=== PATIENT | male | born 1960 | race Caucasian/White ===

== ENCOUNTER 2018-05-30 23:35 | Inpatient (IN) | payer BC ==
[~2018-05-30] VITALS: Ht 177.8 cm; Wt 77.5 kg
[2018-05-31 00:05] LABS: HEMATOCRIT 35.2 % (38.0-50.0); HEMOGLOBIN 12.8 G/DL (12.5-16.6); MCH 32.2 PG (29.0-34.0); MCHC 36.4 G/DL (30.0-36.0); MCV 88.7 FL (86-99); PLATELET COUNT 143 K/uL (156-360); RBC DIS.WIDTH-CV 14.6 % (11.8-14.6); RBC DIS.WIDTH-SD 47.8 % (39-53); RED BLOOD COUNT 3.97 M/uL (4.00-5.50); WHITE BLOOD COUNT 10.9 K/uL (4.1-10.2)
[2018-05-31 00:17] LABS: CHLORIDE 96 mEq/L (99-109); POTASSIUM 3.4 mEq/L (3.7-5.4); SODIUM 132 mEq/L (136-147)
[2018-05-31 00:18] LABS: GLUCOSE 131 mg/dL (70-99)
[2018-05-31 00:22] LABS: CREATININE 1.8 mg/dL (0.6-1.3); GFR ESTIMATE (CALCULATED) 42 mL/min/ (58.99-99999)
[2018-05-31 00:23] LABS: UREA NITROGEN (BUN) 10 mg/dL (9-23)
[2018-05-31 00:58] LABS: APPEARANCE CLEAR ((CLEAR)); BILIRUBIN NEGATIVE; BLOOD MODERATE; COLOR YELLOW ((YELLOW)); GLUCOSE (STRIP) NEGATIVE; KETONES NEGATIVE; LEUKOCYTES SMALL; NITRITE NEGATIVE; PROTEIN (STRIP) NEGATIVE; SPECIFIC GRAVITY 1.003 (1.000-1.030); UROBILINOGEN 0.2 MG/DL (0.2-1.0)
[2018-05-31 01:05] LABS: BACTERIA RARE /HPF; EPITHELIAL CELLS NONE SEEN /HPF; MUCUS TRACE /LPF; UCUL ADDED? NO; WHITE BLOOD CELLS 0-5 /HPF (0-5)
[2018-05-31] MEDS ORDERED: CIPRO500 MG PO (01:43)
[2018-05-31] MEDS ORDERED: VESICARE5 MG PO (01:44)
[2018-05-31] MEDS ORDERED: CYANOCOBAL1000 MCG/2 IM (01:44)
[2018-05-31] MEDS ORDERED: HYDROCODON-ACE1 EAC7 PO (01:44)
[2018-05-31] MEDS ORDERED: ZOFRAN ODT4 MG PO (01:44)
[2018-05-31] MEDS ORDERED: FLOMAX0.4 MG PO (01:44)
[2018-05-31] MEDS ORDERED: QUALAQUIN324 MG PO (01:45)
[2018-05-31 04:10] VITALS: BP 131/74
[2018-05-31 04:15] VITALS: BP 131/74
[2018-05-31 08:26] VITALS: BP 119/63
[2018-05-31 11:31] VITALS: BP 114/65
[2018-05-31 16:37] VITALS: BP 122/70
[2018-05-31 23:59] VITALS: BP 121/72
[2018-06-01 07:34] LABS: BASOPHIL (%) 0.4 % (0-1); EOSINOPHIL COUNT 0.2 K/uL (0-0.3); HEMATOCRIT 32.8 % (38.0-50.0); HEMOGLOBIN 11.4 G/DL (12.5-16.6); IMMATURE GRANULOCYTE (%) 0.4 % (0.0-0.7); LYMPHOCYTE (%) 13.2 % (15-42); LYMPHOCYTE COUNT 0.7 K/uL (1.0-2.8); MCH 31.1 PG (29.0-34.0); MCHC 34.8 G/DL (30.0-36.0); MCV 89.6 FL (86-99); MONOCYTE (%) 11.5 % (3-12); MONOCYTE COUNT 0.6 K/uL (0-0.8); NEUTROPHIL (%) 70.5 % (45-76); NEUTROPHIL COUNT 3.9 K/uL (1.8-6.4); PLATELET COUNT 156 K/uL (156-360); RBC DIS.WIDTH-CV 14.6 % (11.8-14.6); RBC DIS.WIDTH-SD 48.8 % (39-53); RED BLOOD COUNT 3.66 M/uL (4.00-5.50); WHITE BLOOD COUNT 5.5 K/uL (4.1-10.2)
[2018-06-01 08:00] LABS: CHLORIDE 100 MEQ/L (99-109); CREATININE 1.9 MG/DL (0.6-1.3); GFR ESTIMATE (CALCULATED) 39 mL/min/ (58.99-99999); GLUCOSE 104 mg/dL (70-99); POTASSIUM 3.4 MEQ/L (3.7-5.4); SODIUM 136 MEQ/L (136-147); UREA NITROGEN (BUN) 12 mg/dL (9-23)
[2018-06-01 11:23] VITALS: BP 110/66
[2018-06-01 15:24] VITALS: BP 109/62
[2018-06-01 19:32] VITALS: BP 126/75
[2018-06-01 23:21] VITALS: BP 124/73
[2018-06-02 07:01] LABS: CHLORIDE 103 MEQ/L (99-109); GFR ESTIMATE (CALCULATED) > 59 mL/min/ (58.99-99999); GLUCOSE 99 mg/dL (70-99); POTASSIUM 3.5 MEQ/L (3.7-5.4); SODIUM 138 MEQ/L (136-147); UREA NITROGEN (BUN) 9 mg/dL (9-23)
[2018-06-02 07:04] LABS: CREATININE 1.1 MG/DL (0.6-1.3)
[2018-06-02 08:00] VITALS: BP 111/75
[2018-06-02] MEDS ORDERED: PERCOCET 5/31 TABLET PO (08:19)
== END 2018-06-02 09:45 | disposition home or self-care (01) | DRG 669 ==
LOC: EME 23:35 → 3EAST 05-31 02:20 → EDOF 05-31 02:20 → ENRESERV 05-31 02:38 → 3EAST 05-31 03:59
PROVIDERS: Family Medicine; Urology
DX: N20.2 Calculus of kidney with calculus of ureter (principal); N17.9 Acute kidney failure, unspecified; E87.6 Hypokalemia; R60.0 Localized edema; E78.1 Pure hyperglyceridemia; K90.89 Other intestinal malabsorption; K51.90 Ulcerative colitis, unspecified, without complications; R71.8 Other abnormality of red blood cells; K21.9 Gastro-esophageal reflux disease without esophagitis; E53.8 Deficiency of other specified B group vitamins; E80.4 Gilbert syndrome; Z93.3 Colostomy status; Z88.6 Allergy status to analgesic agent; Z88.2 Allergy status to sulfonamides
CPT/HCPCS: 74018; 76000; 80048; 81003; 82365 90; 85025; 85027; 87086; 99281; 99284; C2625; J0692; J2250; J2405; J3010; J3480; J7030